=== PATIENT | female | born 1955 | race Caucasian/White ===

== ENCOUNTER → 2017-03-23 | Outpatient (CLI) | payer BC | LOC: MC.RAD 15:20 | DX: Z12.31 Encounter for screening mammogram for malignant neoplasm of breast (principal) ==

== ENCOUNTER 2018-02-15 08:45 | Outpatient (RCR) | payer OTHER | END 2018-02-15 08:55 | disposition home or self-care (01) | LOC: WSOH 08:45 | DX: S16.1XXA Strain of muscle, fascia and tendon at neck level, initial encounter (principal); X58.XXXA Exposure to other specified factors, initial encounter; Y92.214 College as the place of occurrence of the external cause; Y99.0 Civilian activity done for income or pay; Z79.1 Long term (current) use of non-steroidal anti-inflammatories (NSAID); Z79.899 Other long term (current) drug therapy | CPT/HCPCS: G0283-GP ==

== ENCOUNTER → 2018-04-06 | Outpatient (CLI) | payer BC | LOC: MC.RAD 11:39 | DX: Z12.31 Encounter for screening mammogram for malignant neoplasm of breast (principal) ==

== ENCOUNTER → 2019-05-31 | Outpatient (CLI) | payer BC | LOC: MC.RAD 08:45 | DX: Z12.31 Encounter for screening mammogram for malignant neoplasm of breast (principal) ==

== ENCOUNTER → 2020-03-16 | Outpatient (CLI) | payer BC | LOC: MC.RAD 07:28 | DX: Z12.31 Encounter for screening mammogram for malignant neoplasm of breast (principal) ==

== ENCOUNTER 2020-03-24 16:22 | Outpatient (CLI) | payer BC ==
[~2020-03-24] VITALS: Ht 170.2 cm; Wt 56.3 kg
[2020-03-24 17:14] VITALS: BP 95/55; PULSE 69; TEMP 98.6
[2020-03-24] MEDS ORDERED: CENTRUM SILVER1 CTB PO (17:52)
[2020-03-24] MEDS ORDERED: OSCAL 500 TAB500 MG (17:53)
[2020-03-24] MEDS ORDERED: PROAIR HFA0.09 MG/AC IH (17:53)
[2020-03-24] MEDS ORDERED: FLONASEALLERGY NS (17:54)
== END 2020-03-24 20:02 | disposition home or self-care (01) ==
LOC: EUO 16:22
DX: M81.0 Age-related osteoporosis without current pathological fracture (principal)
CPT/HCPCS: J3489

== ENCOUNTER → 2020-12-15 | Outpatient (CLI) | payer BC ==
[~2020-12-15] MED LIST: CENTRUM SILVER1 CTB PO; FLONASEALLERGY NS; OSCAL 500 TAB500 MG; PROAIR HFA0.09 MG/AC IH
== END ==
LOC: MC.RAD 13:00
DX: Z12.31 Encounter for screening mammogram for malignant neoplasm of breast (principal)